=== PATIENT | female | born 1950 | race Caucasian/White ===

== ENCOUNTER 2017-11-08 09:14 | Day surgery (SDC) | payer MEDICARE, OTHER ==
[2017-11-05 12:40] VITALS: BMI 46.0
--- NOTE | 2017-11-08 12:51 | OP ---
DATE OF PROCEDURE: 11/08/2017 PROCEDURE: Esophagogastroduodenoscopy. SURGEON: Grover Jean Baptiste M.D. ANESTHESIA: Premedication given per Anesthesiology Department. PREOPERATIVE DIAGNOSES: 2. History of esophageal varices for followup. 3. Cirrhosis from TOBIN. POST-PROCEDURE DIAGNOSES: 1. Grade 2 esophageal varices from 30-40 cm from the incisors. 2. Portal gastropathy. PROCEDURE IN DETAIL: A written consent was obtained prior to procedure. After adequate sedation, th e forward-viewing endoscope was advanced under direct vision to the second portion of duodenum. The duodenum appeared normal. Pylorus is patent. Diffuse portal gastropathy was seen throughout the gas tric mucosa. There was no mucosal lesion or abnormality seen. Retroflexion did not show any gastric varices. GE junction located at 40 cm. From 30-40 cm from the incisors, grade I-II esophageal vari mckenna were seen. There was no stigmata of bleeding. The upper esophagus appeared normal. The patient tolerated the procedure well. ASSESSMENT: 1. Grade I to II lower esophageal varices without stigmata of bleeding. 2. Portal gastropathy. PLAN: Increase metoprolol to 25 mg daily.
[2017-11-08] MEDS ORDERED: Propofol 200 MG/20 ML VIAL ONE (17:02)
[2017-11-08] MEDS ORDERED: Lidocaine 1% PF 5 ML VIAL ONE (17:02)
== END 2017-11-08 12:38 | disposition home or self-care (01) ==
LOC: SDC 09:14
PROVIDERS: ATTEND Internal Medicine Gastroenterology
PROC: 0DJ08ZZ Inspection of Upper Intestinal Tract, Via Natural or Artificial Opening Endoscopic (ICD-10-PCS; principal; 2017-11-08)
DX: I85.00 Esophageal varices without bleeding (principal); K74.60 Unspecified cirrhosis of liver; K76.6 Portal hypertension; K31.89 Other diseases of stomach and duodenum; K64.9 Unspecified hemorrhoids; K75.81 Nonalcoholic steatohepatitis (NASH); E78.00 Pure hypercholesterolemia, unspecified; I10 Essential (primary) hypertension; M81.0 Age-related osteoporosis without current pathological fracture; E11.9 Type 2 diabetes mellitus without complications; E07.9 Disorder of thyroid, unspecified; Z79.82 Long term (current) use of aspirin; Z79.84 Long term (current) use of oral hypoglycemic drugs; Z79.899 Other long term (current) drug therapy; Z98.890 Other specified postprocedural states; Z87.891 Personal history of nicotine dependence; Z83.79 Family history of other diseases of the digestive system
CPT/HCPCS: J2001; J2704